=== PATIENT | male | born 1995 | race Caucasian/White ===

== ENCOUNTER 2017-05-02 14:23 | Emergency (ER) | payer OTHER ==
[~2017-05-02] VITALS: Ht 175.3 cm; Wt 141.1 kg
[2017-05-02 15:22] VITALS: Ht 175.3 cm; Wt 141.1 kg
[2017-05-02 16:59] VITALS: BP 128/77
== END 2017-05-02 16:59 | disposition home or self-care (01) ==
LOC: ED 14:23
DX: L02.416 Cutaneous abscess of left lower limb (principal); L02.415 Cutaneous abscess of right lower limb